=== PATIENT | female | born 1985 | race African-American/Black ===

== ENCOUNTER 2018-04-03 08:04 | Emergency (ER) | payer SELFPAY ==
[2018-04-03 08:36] LABS: Bilirubin Negative (Negative); Blood, Urine Moderate (Negative); Clarity Clear (Clear); Glucose, Urine (Dipstick) Negative (Negative); Leukocyte Trace (Negative); Nitrite Negative (Negative); Protein, Urine (Dipstick) Negative (Neg-Trace); Urobilinogen 0.2 mg/dL (0.2-1.0)
[2018-04-03 08:40] LABS: Pregnancy Test - Urine (BHCG) Negative (Negative)
[2018-04-03 08:41] LABS: Pregu Control Background? CLEAR/WHITE (CLR/WHITE); Pregu Control Bar Appear? YES (CONTROL BAR)
[2018-04-03] MEDS ORDERED: Lidocaine 1% 20 ML MDV ONE (08:44)
[2018-04-03] MEDS ORDERED: cefTRIAXone\\ROCEPHIN 1 GM VIAL ONE (08:44)
[2018-04-03] MEDS ORDERED: Azithromycin 250 MG TAB ONE (08:44)
[2018-04-03 08:48] LABS: WBC/HPF 0-3 HPF (0-3)
[2018-04-03 08:49] LABS: Bacteria/HPF None Seen HPF (None Seen)
[2018-04-03] MEDS ORDERED: Fluconazole 100 MG TAB ONE (08:56)
[2018-04-03] MEDS ORDERED: Acetaminophen 500 MG TAB ONE (08:56)
== END 2018-04-03 09:25 | disposition home or self-care (01) ==
LOC: MADERS 08:04
DX: N76.0 Acute vaginitis (principal)
CPT/HCPCS: 81003; 81015; 81025; 96372; J0696; J2001

== ENCOUNTER 2019-01-15 00:41 | Emergency (ER) | payer SELFPAY ==
[2019-01-15 01:05] LABS: Bilirubin Negative (Negative); Blood, Urine Negative (Negative); Clarity Clear (Clear); Glucose, Urine (Dipstick) Negative (Negative); Leukocyte Negative (Negative); Nitrite Negative (Negative); Pregnancy Test - Urine (BHCG) Negative (Negative); Pregu Control Background? CLEAR/WHITE (CLR/WHITE); Pregu Control Bar Appear? YES (CONTROL BAR); Protein, Urine (Dipstick) Negative (Neg-Trace); Specific Gravity 1.015 (1.002-1.036); Specific Gravity, Urine 1.015 (1.005-1.030); Urobilinogen 0.2 mg/dL (0.2-1.0)
[2019-01-15 01:08] LABS: Bacteria/HPF Rare-Few HPF (None Seen); RBC/HPF 0-3 HPF (0-3); WBC/HPF 0-3 HPF (0-3)
== END 2019-01-15 01:13 | disposition home or self-care (01) ==
LOC: MADERS 00:41
DX: R30.0 Dysuria (principal); Z71.6 Tobacco abuse counseling; F17.210 Nicotine dependence, cigarettes, uncomplicated
CPT/HCPCS: 81001; 81025; 87086; 99406

== ENCOUNTER 2019-03-19 04:34 | Emergency (ER) | payer SELFPAY ==
[2019-03-19] MEDS ORDERED: Lidocaine 1% 20 ML MDV ONE (05:41)
[2019-03-19] MEDS ORDERED: Triple Antibiotic Oint 1 GM Packet ONE (06:03)
[2019-03-19] MEDS ORDERED: Sodium Chloride Irrig Solution 250 ML BOT ONE (07:24)
== END 2019-03-19 06:15 | disposition home or self-care (01) ==
LOC: MADERS 04:34
DX: S61.212A Laceration without foreign body of right middle finger without damage to nail, initial encounter (principal); Z87.891 Personal history of nicotine dependence; W26.9XXA Contact with unspecified sharp object(s), initial encounter
CPT/HCPCS: 12002; J2001